=== PATIENT | female | born 1995 | race Caucasian/White ===

== ENCOUNTER 2017-09-30 16:57 | Inpatient (IN) | payer BC ==
[~2017-09-30] VITALS: Ht 162.6 cm; Wt 71.2 kg
[2017-09-30 16:58] VITALS: BP 99/53; PULSE 82; RESP 16; TEMP 98.8; O2SAT 100
[2017-09-30] MEDS ORDERED: SODIUM CHLORIDE 0.9% FLUSH 10 ML FLUSH IV FLUSH PRN ×2 (18:00→18:30)
[2017-09-30] MEDS ORDERED: MORPHINE SULFATE 4 MG/ML INJ IV PUSH ONE (18:00)
[2017-09-30] MEDS ORDERED: ONDANSETRON ODT 4 MG TAB PO ONE (18:00)
--- NOTE | 2017-09-30 18:04 | PD ---
HPI . Ankle injury Chief Complaint: Injury Time Seen by Provider: 17:34 Travel History International Travel<30 days: No Contact w/Intl Traveler<30days: No Traveled to known affect area: No History of Present Illness HPI This patient presents with a left ankle injury. She states that she was painting and cleaning her house when she inadvertently fell. She is unsure as to the exact mechanism that caused the injury to the ankle. She does state that she has walked on it since then. She denies any other associated injuries. When asked to write her pain she states that it is "70%." The pain is exacerbated by movement and palpation. PFSH Past Medical History Medical History: Denies Significant Hx Diminished Hearing: No ?: Not Past Surgical History Surgical History: No Previous Surgery Social History Alcohol Use: No Tobacco Use: No Substance Use: No Allergies-Medications (Allergen,Severity, Reaction): Coded Allergies: No Known Allergies (Unverified , 09/30/17) Review of Systems Except as stated in HPI: all other systems reviewed are Neg Physical Exam Narrative GENERAL: Awake and alert and in no acute distress. SKIN: Warm and dry. She has pain on her hands. It is red and I thought that it was abrasions. HEAD: Normocephalic/atraumatic. EYES: Pupils are equal. Extraocular movements are intact. NECK: Normal range of motion. CARDIOVASCULAR: Regular rate and rhythm. RESPIRATORY: Nonlabored respirations. MUSCULOSKELETAL: Left ankle is swollen. She has bimalleolar tenderness. She is distally neurovascularly intact. I have not really stressed the ankle because of pain. NEUROLOGICAL: Nonfocal. PSYCHIATRIC: Appropriate mood and affect. Data Data Last Documented VS Vital Signs Date Time Temp Pulse Resp B/P (MAP) Pulse Ox O2 Delivery O2 Flow Rate FiO2 09/30/17 16:58 98.8 82 16 99/53 (68) 100 Orders Orders Ice/Cold Pack (09/30/17 17:20) Ankle, Complete ([id number]) (09/30/17 17:20) Basic Metabolic Panel (Bmp) (09/30/17 17:55) Complete Blood Count With Diff (09/30/17 17:55) Urinalysis - C+S If Indicated (09/30/17 17:55) Iv Access Insert/Monitor (09/30/17 17:55) Morphine Inj (Morphine Inj) (09/30/17 18:00) Sodium Chloride 0.9% Flush (Ns Flush) (09/30/17 18:00) Chest, Single Ap (09/30/17 17:55) Ed Urine Pregnancytest Poc (09/30/17 17:55) Ondansetron Odt (Zofran Odt) (09/30/17 18:00) [facility] Request For Service (09/30/17 17:55) Consult Orthopedic (09/30/17 ) (Hub Use Only)Inp Phy Cons/Ref (09/30/17 ) Npo After Midnight W/ Po Meds (10/01/17 Breakfast) Admit To Inpatient (09/30/17 ) Vital Signs (Adult) Q4H (09/30/17 18:17) Activity Oob With Assistance (09/30/17 18:17) Diet Regular Basic (09/30/17 Dinner) Sodium Chloride 0.9% Flush (Ns Flush) (09/30/17 18:30) Sodium Chloride 0.9% Flush (Ns Flush) (09/30/17 21:00) Acetaminophen (Tylenol) (09/30/17 18:30) Naloxone Inj (Narcan Inj) (09/30/17 18:30) Magnesium Hydroxide Liq (Milk Of Magnesi (09/30/17 18:30) Sennosides (Senokot) (09/30/17 18:30) Bisacodyl Supp (Dulcolax Supp) (09/30/17 18:30) Lactulose Liq (Lactulose Liq) (09/30/17 18:30) Ondansetron Odt (Zofran Odt) (09/30/17 18:30) Inpatient Certification (09/30/17 ) Acetamin-Hydrocod 325-5 Mg ([place] 5-325 (09/30/17 18:30) MDM Medical Decision Making Medical Screen Exam Complete: Yes Emergency Medical Condition: Yes Differential Diagnosis Differential diagnosis of extremity trauma includes but is not limited to fracture, sprain or strain, dislocation, contusion Narrative Course This patient presents with a chief complaint of a left ankle injury. X-ray to my interpretation shows a bimalleolar fracture which will likely need surgery. I have a call out to orthopedics. The [facility] is currently here to splint the ankle. I have initiated a workup for preop. Physician Communication Physician Communication Dr. Larkin requested admit to hospitalist. Diagnosis Primary Impression: Closed left ankle fracture Qualified Codes: S82.892A - Other fracture of left lower leg, initial encounter for closed fracture Admitting Information Admitting Physician Requests: Admit Condition: Stable Estephania Enriquez MD September 30, 2017 18:04
--- NOTE | 2017-09-30 18:18 | RADRPT ---
EXAM DATE/TIME: 09/30/2017 17:36 [facility] COMPARISON: No previous studies available for comparison. INDICATIONS : Pain on lateral left ankle after falling today. MEDICAL HISTORY : None. SURGICAL HISTORY : None. ENCOUNTER: Initial ACUITY: 1 day PAIN SCORE: 10/10 LOCATION: Left Ankle. FINDINGS: There is a mildly displaced fractures involving the distal fibula and medial malleolus at the ankle. There is some mild widening of the mortise joint. No complete joint dislocation. The talus appears to be intact. The calcaneus appears to be grossly intact. There is soft tissue swelling around the ankl e. CONCLUSION: Mildly displaced bimalleolar fractures. Yeyo Alvarado MD on September 30, 2017 at 18:15 Board Certified Radiologist. This report was verified electronically.
[2017-09-30] MEDS ORDERED: ACETAMINOPHEN 325 MG TAB PO PRN (18:30)
[2017-09-30] MEDS ORDERED: NALOXONE HCL 0.4 MG/ML AMP IV PUSH PRN (18:30)
[2017-09-30] MEDS ORDERED: ONDANSETRON ODT 4 MG TAB PO PRN (18:30)
[2017-09-30] MEDS ORDERED: ACETAMINOPHEN/HYDROcodone 325 MG/5 MG TAB PO PRN (18:30)
[2017-09-30] MEDS ORDERED: LACTULOSE SYRUP 20 GM/30 ML CUP PO PRN (18:30)
[2017-09-30] MEDS ORDERED: MAGNESIUM HYDROXIDE SUSP 30 ML CUP PO PRN (18:30)
[2017-09-30] MEDS ORDERED: SENNOSIDES 8.6 MG TAB PO PRN (18:30)
[2017-09-30] MEDS ORDERED: BISACODYL 10 MG SUPP RECTAL PRN (18:30)
[2017-09-30 18:32] VITALS: BP 124/67; PULSE 87; RESP 17; O2SAT 98
--- NOTE | 2017-09-30 18:39 | RADRPT ---
EXAM DATE/TIME: 09/30/2017 18:15 [facility] COMPARISON: No previous studies available for comparison. INDICATIONS : Evaluate for pneumothorax, pneumonia, or communicable diseases. Pre-op left ankle surgery. MEDICAL HISTORY : None. SURGICAL HISTORY : None. ENCOUNTER: Initial ACUITY: 1 day PAIN SCORE: 10/10 LOCATION: chest FINDINGS: A single view of the chest demonstrates the lungs to be symmetrically aerated without evidence of mas s, infiltrate or effusion. The cardiomediastinal contours are unremarkable. Osseous structures are intact. CONCLUSION: No acute pulmonary infiltrates. Yeyo Alvarado MD on September 30, 2017 at 18:36 Board Certified Radiologist. This report was verified electronically.
[2017-09-30 19:10] LABS: AUTOMATED NEUTROPHIL # 11.9 TH/MM3 (1.8-7.7); BASOPHIL # 0.1 TH/MM3 (0-0.2); BASOPHIL % 0.4 % (0.0-2.0); EOSINOPHIL # 0.3 TH/MM3 (0-0.4); EOSINOPHIL % 1.8 % (0.0-4.0); HEMATOCRIT 37.5 % (35.0-46.0); HEMOGLOBIN 12.3 GM/DL (11.6-15.3); LYMPH % 12.4 % (9.0-44.0); LYMPHOCYTE # 1.8 TH/MM3 (1.0-4.8); MEAN CELL VOLUME 84.1 FL (80.0-100.0); MEAN CORPUSCULAR HEMOGLOBIN 27.6 PG (27.0-34.0); MEAN CORPUSCULAR HGB CONC 32.8 % (32.0-36.0); MEAN PLATELET VOLUME 9.8 FL (7.0-11.0); MONO % 4.3 % (0.0-8.0); MONOCYTE # 0.6 TH/MM3 (0-0.9); NEUT % 81.1 % (16.0-70.0); PLATELET COUNT 313 TH/MM3 (150-450); RED BLOOD COUNT 4.46 MIL/MM3 (4.00-5.30); WHITE BLOOD COUNT 14.7 TH/MM3 (4.0-11.0)
--- NOTE | 2017-09-30 19:19 | HHI.HP ---
[facility] Primary [facility] Physician Unknown Admission Diagnosis left ankle fx Diagnoses: Chief Complaint: Fall, left ankle fracture Travel History International Travel<30 Days: No Contact w/Intl Traveler <30 Da: No Traveled to Known Affected Are: No History of Present Illness Ms. Maravilla is a pleasant 22-year-old female with no significant medical history who presents to the emergency department on 09/30/2017 due to a fall and left ankle fracture. Patient was painting her house when she accidentally fell and injured her left ankle. She denies any chest pain, shortness of breath, cough, fever or chills. She denies any dizziness or lightheadedness prior to her fall. A splint was placed in the ED and orthopedic surgery was consulted. Patient will likely undergo orthopedic surgical intervention in the morning on . Review of Systems Except as stated in HPI: all other systems reviewed are Neg Past Family Social History Past Medical History No significant medical history Past Surgical History No significant surgical history Reported Medications Does not take any medication on a regular basis Allergies: Coded Allergies: No Known Allergies (Unverified , 09/30/17) Family History Family history significant for father having prediabetes. Social History Patient does not smoke, drink or use any illicit drugs. Physical Exam Vital Signs Vital Signs Date Time Temp Pulse Resp B/P (MAP) Pulse Ox O2 Delivery O2 Flow Rate FiO2 09/30/17 19:08 09/30/17 19:06 Room Air 09/30/17 18:32 87 17 124/67 (86) 98 Room Air 09/30/17 16:58 98.8 82 16 99/53 (68) 100 Physical Exam GENERAL: This is a well-nourished, well-developed patient, in no apparent distress. SKIN: No rashes, ecchymoses or lesions. Warm and dry. HEAD: Atraumatic. Normocephalic. No temporal or scalp tenderness. EYES: Pupils equal round and reactive. No injection or drainage. ENT: Nose without bleeding, purulent drainage or septal hematoma. Airway patent. NECK: Trachea midline. No lymphadenopathy. Supple, nontender, no meningeal signs. CARDIOVASCULAR: Regular rate and rhythm without murmurs, gallops, or rubs. No JVD. RESPIRATORY: Clear to auscultation. Breath sounds equal bilaterally. No wheezes , rales, or rhonchi. GASTROINTESTINAL: Abdomen soft, non-tender, nondistended. No guarding. MUSCULOSKELETAL: Extremities without clubbing, cyanosis, or edema. Left ankle splint in place, able to move all toes. NEUROLOGICAL: Awake and alert. Cranial nerves II through XII intact. No focal neurological deficits. Normal speech. Laboratory Laboratory Tests Test 09/30/17 18:29 White Blood Count 14.7 Red Blood Count 4.46 Hemoglobin 12.3 Hematocrit 37.5 Mean Corpuscular Volume 84.1 Mean Corpuscular Hemoglobin 27.6 Mean Corpuscular Hemoglobin Concent 32.8 Red Cell Distribution Width 13.0 Platelet Count 313 Mean Platelet Volume 9.8 Neutrophils (%) (Auto) 81.1 Lymphocytes (%) (Auto) 12.4 Monocytes (%) (Auto) 4.3 Eosinophils (%) (Auto) 1.8 Basophils (%) (Auto) 0.4 Neutrophils # (Auto) 11.9 Lymphocytes # (Auto) 1.8 Monocytes # (Auto) 0.6 Eosinophils # (Auto) 0.3 Basophils # (Auto) 0.1 CBC Comment DIFF FINAL Differential Comment Result Diagram: 09/30/17 1829 Imaging Last Impressions Chest X-Ray 09/30/17 1755 Signed Impressions: Service Date/Time: Saturday, September 30, 2017 18:15 - CONCLUSION: No acute pulmonary infiltrates. Yeyo Alvarado MD Ankle X-Ray 09/30/17 1720 Signed Impressions: Service Date/Time: Saturday, September 30, 2017 17:36 - CONCLUSION: Mildly displaced bimalleolar fractures. Yeyo Alvarado MD Caprini VTE Risk Assessment Caprini VTE Risk Assessment: No/Low Risk (score <= 1) Caprini Risk Assessment Model Point Value = 1 Point Value = 2 Point Value = 3 Point Value = 5 Age 41-60 Minor surgery BMI > 25 kg/m2 Swollen legs Varicose veins or History of unexplained or recurrent spontaneous Oral contraceptives or hormone replacement Sepsis (< 1 month) Serious lung disease, including pneumonia (< 1 month) Abnormal pulmonary function Acute myocardial infarction Congestive heart failure (< 1 month) History of inflammatory bowel disease Medical patient at bed rest Age 61-74 Arthroscopic surgery Major open surgery (> 45 min) Laparoscopic surgery (> 45 min) Malignancy Confined to bed (> 72 hours) Immobilizing plaster cast Central venous access Age >= 75 History of VTE Family history of VTE Factor V Leiden Prothrombin [id number] Lupus anticoagulant Anticardiolipin antibodies Elevated serum homocysteine Heparin-induced thrombocytopenia Other congenital or acquired thrombophilia Stroke (< 1 month) Elective arthroplasty Hip, pelvis, or leg fracture Acute spinal cord injury (< 1 month) Prophylaxis Regimen Total Risk Factor Score Risk Level Prophylaxis Regimen 0-1 Low Early ambulation 2 Moderate Order ONE of the following: *Sequential Compression Device (SCD) *Heparin 5000 units SQ BID 3-4 Higher Order ONE of the following medications: *Heparin 5000 units SQ TID *Enoxaparin/Lovenox 40 mg SQ daily (WT < 150 kg, CrCl > 30 mL/min) *Enoxaparin/Lovenox 30 mg SQ daily (WT < 150 kg, CrCl > 10-29 mL/min) *Enoxaparin/Lovenox 30 mg SQ BID (WT < 150 kg, CrCl > 30 mL/min) AND/OR *Sequential Compression Device (SCD) 5 or more Highest Order ONE of the following medications: *Heparin 5000 units SQ TID (Preferred with Epidurals) *Enoxaparin/Lovenox 40 mg SQ daily (WT < 150 kg, CrCl > 30 mL/min) *Enoxaparin/Lovenox 30 mg SQ daily (WT < 150 kg, CrCl > 10-29 mL/min) *Enoxaparin/Lovenox 30 mg SQ BID (WT < 150 kg, CrCl > 30 mL/min) AND *Sequential Compression Device (SCD) Assessment and Plan Problem List: (1) Closed left ankle fracture ICD Code: S82.892A - Other fracture of left lower leg, initial encounter for closed fracture Status: Acute Assessment and Plan Ms. Maravilla is a pleasant 22-year-old female with no past medical or surgical history who presents to the emergency department on 09/30/2017 after she fell and injured her left ankle. Radiological studies indicated left bimalleolar fracture. Left bimalleolar fracture -Acetaminophen, [place], morphine IV for pain as needed -Orthopedic surgery consulted, probable surgery tomorrow 10/01/2017 -Likely discharge tomorrow 10/01/2017 when cleared by orthopedic surgery. -N.p.o. midnight Full code. Low risk for DVT. Patient will likely not need any anticoagulation after surgery. Physician Certification 2 Midnight Certification Type: Admission for Inpatient Services Order for Inpatient Services The services are ordered in accordance with Medicare regulations or non- Medicare payer requirements, as applicable. In the case of services not specified as inpatient-only, they are appropriately provided as inpatient services in accordance with the 2-midnight benchmark. Estimated LOS (days): 1 days is the estimated time the patient will need to remain in the hospital, assuming treatment plan goals are met and no additional complications. Post-Hospital Plan: Home Problem Qualifiers (1) Closed left ankle fracture: Qualified Codes: S82.892A - Other fracture of left lower leg, initial encounter for closed fracture Rene Arita DO September 30, 2017 19:18
[2017-09-30 19:28] LABS: BICARBONATE 24.1 MEQ/L (21.0-32.0); CALCIUM 8.3 MG/DL (8.5-10.1); CREATININE 0.59 MG/DL (0.50-1.00)
[2017-09-30] MEDS ORDERED: MORPHINE SULFATE 4 MG/ML INJ IV PUSH PRN (19:30)
[2017-09-30 20:00] VITALS: BP 128/57; PULSE 101; RESP 18; TEMP 98.5; O2SAT 99
[2017-09-30] MEDS: SODIUM CHLORIDE 0.9% FLUSH 10 ML FLUSH IV FLUSH SCH (21:06)
[2017-09-30] MEDS ORDERED: LACTATED RINGER'S 1000 ML IV PRN (22:30)
[2017-09-30] MEDS ORDERED: SODIUM CHLORID 0.9% 500 ML IV PRN (22:30)
[2017-09-30] MEDS ORDERED: CHLORHEXIDINE GLUCONATE 2 % 1 PACK (2 CLOTHS) TOPICAL PRN (22:30)
[2017-09-30] MEDS ORDERED: POVIDONE IODINE 5% (ANTISEPSIS KIT) 4 APPLICATIONS EACH NARE PRN (22:30)
[2017-10-01] VITALS: BP 104/68; PULSE 111; RESP 18; TEMP 99; O2SAT 99
[2017-10-01 04:00] VITALS: BP 102/58; PULSE 86; RESP 16; TEMP 99.1; O2SAT 100
[2017-10-01 08:00] VITALS: BP 108/60; PULSE 84; RESP 16; TEMP 97.6; O2SAT 98
[2017-10-01] MEDS: SODIUM CHLORIDE 0.9% FLUSH 10 ML FLUSH IV FLUSH SCH ×2 (09:00→21:00)
[2017-10-01] MEDS ORDERED: fentaNYL CITRATE 250 MCG/5 ML AMP ONE (10:23)
[2017-10-01] MEDS ORDERED: BUPIVACAINE HCL PF 0.5% 30 ML VIAL ONE (10:35)
[2017-10-01] MEDS ORDERED: BACITRACIN TOP OINT 15 GM TUBE ONE (10:35)
[2017-10-01] MEDS ORDERED: GENTAMICIN SULFATE 80 MG/2 ML VIAL ONE (10:35)
--- NOTE | 2017-10-01 13:12 | RADRPT ---
EXAM DATE/TIME: 10/01/2017 12:54 [facility] COMPARISON: No previous studies available for comparison. INDICATIONS : ORIF of the left ankle. MEDICAL HISTORY : None. SURGICAL HISTORY : None. ENCOUNTER: Subsequent ACUITY: 2 days PAIN SCORE: Non-responsive. LOCATION: Left ankle. FINDINGS: Plate with screws is seen bridging the fibular fracture. Cortical lag screw is seen in the medial ma lleolus. CONCLUSION: Anatomic alignment. Hany Han MD FACR on October 01, 2017 at 13:10 Board Certified Radiologist. This report was verified electronically.
[2017-10-01] MEDS ORDERED: ASPI81CH6 CHEW (13:13)
[2017-10-01] MEDS ORDERED: HYDR-3288 PO (13:14)
[2017-10-01] MEDS ORDERED: NURSING INFORMATION XX PRN (13:15)
[2017-10-01] MEDS ORDERED: Post-op Orders (for Pharmacy) XX ONE (13:15)
[2017-10-01] MEDS ORDERED: PHARMACY INFORMATION XX ONE (13:15)
[2017-10-01] MEDS ORDERED: diphenhydrAMINE HCL 25 MG CAP PO PRN (13:15)
[2017-10-01] MEDS ORDERED: MORPHINE SULFATE 4 MG/ML INJ IV PUSH PRN (13:15)
[2017-10-01] MEDS ORDERED: ONDANSETRON HCL 4 MG/2 ML VIAL IVP PRN (13:15)
[2017-10-01] MEDS ORDERED: MAGNESIUM HYDROXIDE SUSP 30 ML CUP PO PRN (13:15)
[2017-10-01] MEDS ORDERED: ACETAMINOPHEN/HYDROcodone 325 MG/7.5 MG TAB PO PRN (13:15)
[2017-10-01] MEDS ORDERED: DO NOT ADM ANY ANTICOAGULANT DRUGS PRN (13:23)
--- NOTE | 2017-10-01 13:31 | MP ---
cc: Matt Larkin MD DATE OF OPERATION: PREOPERATIVE DIAGNOSIS: Left bimalleolar ankle fracture. POSTOPERATIVE DIAGNOSIS: Left bimalleolar ankle fracture. PROCEDURE: Open reduction, internal fixation left bimalleolar ankle fracture. SURGEON: Matt Larkin MD [facility] DIRECTOR: HARVEY Escalante ANESTHESIA: General. ESTIMATED BLOOD LOSS: 50 mL TOURNIQUET TIME: Zero minutes. COMPLICATIONS: None. IMPLANTS USED: Synthes. INDICATIONS: The patient is a 22-year-old female who fell from a ladder, sustaining a displaced left bimalleolar ankle fracture. She presents to [facility] Emergency Room. X-ray confirmed the above named findings. Orthopedic surgery was consulted. The patient was counseled on the risks, benefits, alternatives of the above named proposed surgical procedure. She did wish to proceed with surgery. PROCEDURE IN DETAIL: Written consent was obtained. The patient was identified by name, taken to the operating room and placed supine on the operating table. General anesthesia was administered as well as 2 grams of IV Ancef and 1 gram of IV vancomycin. A well-padded tourniquet was placed on the left thigh; however, this was not inflated. The left lower extremity was prepped and draped using isopropyl alcohol, Hibiclens solution and ChloraPrep solution. After timeout was performed, a longitudinal incision was made over the lateral aspect of the left ankle. The fascial layer was incised. The periosteum was elevated off the distal fibula. A fracture reduction tenaculum was used to assist with fracture reduction. A Synthes distal tibial locking plate was applied to the lateral aspect of the distal fibula. A combination of both locking and nonlocking screws were used for fixation. Fluoroscopic imaging confirmed hardware placement, fracture reduction. Surgical wound was thoroughly irrigated with sterile saline solution. The deep fascial layer was closed with 2-0 Vicryl suture, subcutaneous layer with 2-0 Vicryl suture. Skin was closed with maria esther. Attention was turned to the medial aspect of the left ankle where a longitudinal incision was performed. Exposure of the fracture was achieved and an open reduction was performed. At this point, a guidewire was then drilled transverse in the fracture and subsequently a Synthes 4.0 mm partially threaded cannulated screw was inserted over the guide wire for internal fixation of the medial malleolar fracture fragment. Fluoroscopic imaging confirmed hardware placement and fracture reduction. Surgical wound was thoroughly irrigated with sterile saline solution. Subcutaneous layer was closed with 2-0 Vicryl suture. Skin incision closed with maria esther. Sterile dressing applied. The patient was placed in a well-padded splint. She tolerated the procedure well with no intraoperative complications noted. Romulo Carter physician assistant womens volleyball coach, certified was present for the entire procedure to include the patient position and the procedure itself. The medical necessity of physician assistant womens volleyball coach was indicated in this case due to the complexity of the procedure. He assisted with appropriate manipulation of the leg and also retraction of muscle, tendon, bone, neurovascular structures. He assisted with preparation of bone, fracture reduction and implantation of the internal fixation device. Matt Larkin MD JWM/TL , 01:11 PM , 01:30 PM
[2017-10-01] MEDS ORDERED: *morphine SULFATE 8 MG/ML PERIprocedure ONLY ONE (13:44)
--- NOTE | 2017-10-01 13:50 | MB ---
cc: Matt Larkin MD DATE: 10/01/2017 REASON FOR CONSULTATION: Left ankle fracture. HISTORY OF PRESENT ILLNESS: This patient is a 22-year-old female who presents to [facility] Emergency Room after a fall from a ladder, sustaining a severe injury to the left ankle. She had immediate pain, swelling, bruising and was unable to stand or bear weight. X-rays performed at [facility] emergency room showed evidence of a displaced bimalleolar ankle fracture. She was admitted to the medical service. Orthopedic surgery consulted. A well-padded splint was placed in the emergency room. Pain is severe, constant, throbbing. No numbness, tingling. No alleviating factors. PAST MEDICAL HISTORY: Negative. PAST SURGICAL HISTORY: Negative. MEDICATIONS: She is not taking any medications. ALLERGIES: SHE HAS NO KNOWN DRUG ALLERGIES. FAMILY HISTORY: Positive for diabetes on her father's side. SOCIAL HISTORY: Nonsmoker, nondrinker, no drugs. REVIEW OF SYSTEMS: Negative for 10 systems other than HPI. PHYSICAL EXAMINATION: VITAL SIGNS: Temperature 98, pulse 82, respirations 16, blood pressure 95/53. GENERAL: The patient is awake, alert, lying in bed, in mild distress. HEENT: Normocephalic, atraumatic. Pupils round, extraocular movements intact. NECK: Supple. LUNGS: Clear. HEART: Regular rate and rhythm. ABDOMEN: Soft, nontender. EXTREMITIES: Left ankle shows pains, swelling and deformity. Her skin is intact. Brisk capillary refill. Sensation intact distally. She has pain with passive motion. LABORATORY AND DIAGNOSTIC DATA: White blood cell count 14.7, hemoglobin 12, hematocrit 37, platelets 313. X-ray of left ankle reveal displaced bimalleolar ankle fracture. IMPRESSION: A 22-year-old female, fall from a ladder with left displaced bimalleolar ankle fracture. PLAN: I discussed diagnosis and treatment. We spoke about the options of nonoperative treatment versus surgery. Surgery would consist of open reduction and internal fixation. The risks of surgery were discussed, which include, but are not limited to, anesthesia, bleeding, infection, damage to nerves and blood vessels, pain, stiffness, failure of hardware, blood clots, ____. The patient has asked appropriate questions, which have been answered. She is in favor of proceeding with surgery and does wish to proceed. Written consent has been obtained and surgical site has been marked. MD ANTONIO Rojas/MARIAM , 01:09 PM , 01:50 PM
[2017-10-01] MEDS ORDERED: ENOXAPARIN SODIUM 30 MG/0.3 ML SYRINGE SQ SCH (14:00)
[2017-10-01] MEDS: DEXT 5%-NACL 0.45% 1000 ML INJ 1,000 ML IV SCH ×2 (14:00→22:33)
[2017-10-01] MEDS: ACETAMINOPHEN/HYDROcodone 325 MG/7.5 MG TAB PO PRN (15:18)
[2017-10-01 16:00] VITALS: BP 112/67; PULSE 95; RESP 16; TEMP 99.1; O2SAT 97
--- NOTE | 2017-10-01 17:56 | HHI.PR ---
Subjective Remarks Follow-up for left ankle fracture. Patient is currently doing well. Pain is under control. Patient was seen in the morning. However patient underwent right ankle surgery this afternoon. Objective Vitals Vital Signs Date Time Temp Pulse Resp B/P (MAP) Pulse Ox O2 Delivery O2 Flow Rate FiO2 10/01/17 14:50 98.5 89 16 109/65 (80) 96 Room Air 10/01/17 14:30 94 15 110/61 (77) 95 Room Air 10/01/17 14:15 95 15 116/62 (80) 95 Room Air 10/01/17 14:00 97 15 119/65 (83) 95 Room Air 10/01/17 13:49 15 10/01/17 13:45 105 15 120/63 (82) 95 Room Air 10/01/17 13:30 108 15 118/60 (79) 100 Nasal Cannula 2 10/01/17 13:20 99.4 110 18 120/67 (84) 98 Nasal Cannula 2 10/01/17 08:00 97.6 84 16 108/60 (76) 98 10/01/17 04:00 99.1 86 16 102/58 (73) 100 10/01/17 00:00 99.0 111 18 104/68 (80) 99 09/30/17 20:00 98.5 101 18 128/57 (80) 99 09/30/17 19:08 09/30/17 19:06 Room Air 09/30/17 18:32 87 17 124/67 (86) 98 Room Air I/O 09/30/17 09/30/17 09/30/17 10/01/17 10/01/17 10/01/17 07:00 15:00 23:00 07:00 15:00 23:00 Intake Total 0 ml 800 ml Output Total 50 ml Balance 0 ml 750 ml Intake Oral 0 ml IV Total 100 ml Other 700 ml Output Estimated Blood Loss 50 ml # Voids 1 0 0 # Bowel Movements 0 Result Diagram: 09/30/17182809/30/171828 Imaging Last Impressions Ankle X-Ray 10/01/17 0000 Signed Impressions: Service Date/Time: Sunday, October 01, 2017 12:54 - CONCLUSION: Anatomic alignment. Hany Han MD FACR Chest X-Ray 09/30/17 4773 Signed Impressions: Service Date/Time: Saturday, September 30, 2017 18:15 - CONCLUSION: No acute pulmonary infiltrates. Yeyo Alvarado MD Objective Remarks GENERAL: Alert, oriented 3, NAD. SKIN: Warm and dry. HEAD: Normocephalic. EYES: No scleral icterus. No injection or drainage. NECK: Supple, trachea midline. No JVD or lymphadenopathy. CARDIOVASCULAR: Regular rate and rhythm without murmurs, gallops, or rubs. RESPIRATORY: Breath sounds equal bilaterally. No accessory muscle use. GASTROINTESTINAL: Abdomen soft, non-tender, nondistended. MUSCULOSKELETAL: No cyanosis, or edema. BACK: Nontender without obvious deformity. No CVA tenderness. Procedures Right ankle surgery A/P Problem List: (1) Closed left ankle fracture ICD Code: S82.892A - Other fracture of left lower leg, initial encounter for closed fracture Status: Acute Assessment and Plan Ms. Maravilla is a pleasant 22-year-old female with no past medical or surgical history who presents to the emergency department on 09/30/2017 after she fell and injured her left ankle. Radiological studies indicated left bimalleolar fracture. Left bimalleolar fracture -Acetaminophen, [place], morphine IV for pain as needed -Orthopedic surgery consulted -patient underwent ORIF left bimalleolar ankle fracture. -Likely discharge tomorrow 10/02/2017 when cleared by orthopedic surgery. Full code. Low risk for DVT. Patient will likely not need any anticoagulation after surgery. Problem Qualifiers (1) Closed left ankle fracture: Qualified Codes: S82.892A - Other fracture of left lower leg, initial encounter for closed fracture Rene Arita DO October 01, 2017 5:56 pm
[2017-10-01 20:45] VITALS: BP 108/52; PULSE 106; RESP 16; TEMP 98; O2SAT 98
[2017-10-01] MEDS: DOCUSATE SODIUM 50 MG/SENNA 8.6 MG TAB PO SCH (22:34)
[2017-10-02 00:30] VITALS: BP 92/54; PULSE 95; RESP 18; TEMP 98.4; O2SAT 98
[2017-10-02] MEDS: ACETAMINOPHEN/HYDROcodone 325 MG/7.5 MG TAB PO PRN ×3 (05:24→13:21)
[2017-10-02 05:52] LABS: HEMATOCRIT 33.3 % (35.0-46.0); MEAN CELL VOLUME 83.8 FL (80.0-100.0); MEAN CORPUSCULAR HEMOGLOBIN 27.8 PG (27.0-34.0); MEAN CORPUSCULAR HGB CONC 33.1 % (32.0-36.0); PLATELET COUNT 278 TH/MM3 (150-450); RED BLOOD COUNT 3.98 MIL/MM3 (4.00-5.30); RED CELL DISTRIBUTION WIDTH 12.9 % (11.6-17.2); WHITE BLOOD COUNT 13.3 TH/MM3 (4.0-11.0)
[2017-10-02 06:17] LABS: BICARBONATE 25.4 MEQ/L (21.0-32.0); CALCIUM 7.9 MG/DL (8.5-10.1); CREATININE 0.49 MG/DL (0.50-1.00)
[2017-10-02 07:33] VITALS: BP 97/51; PULSE 77; RESP 16; TEMP 98; O2SAT 98
[2017-10-02] MEDS ORDERED: MULTIVITAMINS/MINERALS THERAPEUTIC TAB PO SCH (09:00)
[2017-10-02] MEDS: DOCUSATE SODIUM 50 MG/SENNA 8.6 MG TAB PO SCH (09:12)
[2017-10-02] MEDS: DEXT 5%-NACL 0.45% 1000 ML INJ 1,000 ML IV SCH (09:14)
[2017-10-02] MEDS: SODIUM CHLORIDE 0.9% FLUSH 10 ML FLUSH IV FLUSH SCH (09:16)
--- NOTE | 2017-10-02 09:58 | HHI.PR ---
Subjective Remarks pain controlled, no other complaints. Objective Vitals Vital Signs Date Time Temp Pulse Resp B/P (MAP) Pulse Ox O2 Delivery O2 Flow Rate FiO2 10/02/17 07:33 98.0 77 16 97/51 (66) 98 10/02/17 00:30 98.4 95 18 92/54 (67) 98 10/01/17 20:45 98.0 106 16 108/52 (70) 98 10/01/17 18:54 Room Air 10/01/17 16:00 99.1 95 16 112/67 (82) 97 10/01/17 14:50 98.5 89 16 109/65 (80) 96 Room Air 10/01/17 14:30 94 15 110/61 (77) 95 Room Air 10/01/17 14:15 95 15 116/62 (80) 95 Room Air 10/01/17 14:00 97 15 119/65 (83) 95 Room Air 10/01/17 13:49 15 10/01/17 13:45 105 15 120/63 (82) 95 Room Air 10/01/17 13:30 108 15 118/60 (79) 100 Nasal Cannula 2 10/01/17 13:20 99.4 110 18 120/67 (84) 98 Nasal Cannula 2 I/O 10/01/17 10/01/17 10/01/17 10/02/17 10/02/17 10/02/17 07:00 15:00 23:00 07:00 15:00 23:00 Intake Total 0 ml 1040 ml 1171 ml Output Total 50 ml Balance 0 ml 990 ml 1171 ml Intake Oral 0 ml 240 ml 360 ml IV Total 100 ml 811 ml Other 700 ml Output Estimated Blood Loss 50 ml # Voids 0 1 2 # Bowel Movements 0 0 Result Diagram: 10/02/17 0447 10/02/17 0447 Objective Remarks GENERAL: This is a well-nourished, well-developed patient, in no apparent distress. CARDIOVASCULAR: Regular rate and rhythm RESPIRATORY: Clear to auscultation. Breath sounds equal bilaterally. No wheezes , rales, or rhonchi. MUSCULOSKELETAL: Extremities without clubbing, cyanosis, or edema. left splint/ bandage c/d/i NEURO: Alert & Oriented x4 to person, place, time, situation. Moves all ext x4 Procedures Right ankle surgery A/P Problem List: (1) Closed left ankle fracture ICD Code: S82.892A - Other fracture of left lower leg, initial encounter for closed fracture Status: Acute Assessment and Plan Ms. Maravilla is a pleasant 22-year-old female with no past medical or surgical history who presents to the emergency department on 09/30/2017 after she fell and injured her left ankle. Left bimalleolar fracture status post op day #1 - Left ORIF with Dr. Larkin -Acetaminophen, [place], morphine IV for pain as needed -physical therapy. post op care DVT prophylaxis - Low risk for DVT. Discharge Planning discharge to home with a front wheeled walker. Problem Qualifiers (1) Closed left ankle fracture: Qualified Codes: S82.892A - Other fracture of left lower leg, initial encounter for closed fracture Daniela Black MD October 02, 2017 09:58
[2017-10-02] MEDS ORDERED: WALKER WHEELS/F1 MIS (09:59)
[2017-10-02 12:01] VITALS: BP 103/51; PULSE 82; RESP 18; TEMP 98.1; O2SAT 98
--- NOTE | 2017-10-02 12:09 | PD.ORT.PN ---
Subjective Post Op Day #: 1 Subjective Remarks doing well. pain controlled. Objective Vitals Vital Signs Date Time Temp Pulse Resp B/P (MAP) Pulse Ox O2 Delivery O2 Flow Rate FiO2 10/02/17 12:01 98.1 82 18 103/51 (68) 98 10/02/17 07:33 98.0 77 16 97/51 (66) 98 10/02/17 00:30 98.4 95 18 92/54 (67) 98 10/01/17 20:45 98.0 106 16 108/52 (70) 98 10/01/17 18:54 Room Air 10/01/17 16:00 99.1 95 16 112/67 (82) 97 10/01/17 14:50 98.5 89 16 109/65 (80) 96 Room Air 10/01/17 14:30 94 15 110/61 (77) 95 Room Air 10/01/17 14:15 95 15 116/62 (80) 95 Room Air 10/01/17 14:00 97 15 119/65 (83) 95 Room Air 10/01/17 13:49 15 10/01/17 13:45 105 15 120/63 (82) 95 Room Air 10/01/17 13:30 108 15 118/60 (79) 100 Nasal Cannula 2 10/01/17 13:20 99.4 110 18 120/67 (84) 98 Nasal Cannula 2 I/O 10/01/17 10/01/17 10/01/17 10/02/17 10/02/17 10/02/17 07:00 15:00 23:00 07:00 15:00 23:00 Intake Total 0 ml 1040 ml 1171 ml Output Total 50 ml Balance 0 ml 990 ml 1171 ml Intake Oral 0 ml 240 ml 360 ml IV Total 100 ml 811 ml Other 700 ml Output Estimated Blood Loss 50 ml # Voids 0 1 2 # Bowel Movements 0 0 Result Diagram: 10/02/1744610/02/17446 Objective Remarks in chair, nad splint intact nvi sensation intact cap refill. Assessment & Plan Ortho Post Op Day #: 1 Problem List: Assessment and Plan s/p ORIF L ankle fx NWB maintain splint lovenox ortho stable, cleared for d/c f/up dr. desouza 1-2 weeks Matt Carter October 02, 2017 12:09
[2017-10-02] MEDS ORDERED: ENOXAPARIN SODIUM 30 MG/0.3 ML SYRINGE SQ SCH (13:00)
== END 2017-10-02 13:55 | disposition home or self-care (01) | DRG 494 ==
LOC: HOR 16:57 → NEDA 18:25 → N06B 19:02
PROVIDERS: ADMIT Family Medicine; ATTEND Family Medicine
PROC: 0QSK04Z Reposition Left Fibula with Internal Fixation Device, Open Approach (ICD-10-PCS; principal; 2017-10-01 11:46)
DX: S82.842A Displaced bimalleolar fracture of left lower leg, initial encounter for closed fracture (principal); W19.XXXA Unspecified fall, initial encounter; Y93.89 Activity, other specified
CPT/HCPCS: 71045; 73600; 73610; 76000; 80048; 84703; 85025; 85027; 94150; C1713; J0690; J1580; J1650; J2270; J3010; J7120